=== PATIENT | female | born 1975 ===

== ENCOUNTER 2022-07-12 16:34 | Outpatient (REF) | payer OTHER, SELFPAY ==
--- NOTE | 2022-07-12 15:45 | ENDOMET_PTH ---
PATIENT: Lyudmila Felix LOC: [facility] U#:[id number] AGE/SX: 46/F ROOM: RE07/12/[address]: Nora Ashley MD : 1975 BED: DIS: 07/12/2022 SPEC #: [id number] RECD: 07/12/22 17:47 STATUS: FAYE REQ #: [id number] MARIFER: 07/12/22 15:[address]: Nora Ashley DEPT: Surgical Specimen RECD BY: Erica Wu Tissues: 1 - ENDOMETRIUM BX/GWENDOLYN Procedures: GROSS AND MICRO LEVEL 4 Comments: [id number]
== END 2022-07-12 16:35 | disposition home or self-care (01) ==
LOC: LBN 16:34
PROVIDERS: Visit Provider Obstetrics & Gynecology
DX: N85.00 Endometrial hyperplasia, unspecified (principal)
CPT/HCPCS: 88305